=== PATIENT | male | born 1995 | race African-American/Black ===

== ENCOUNTER 2018-03-21 13:16 | Emergency (ER) | payer SELFPAY ==
[2018-03-21] MEDS ORDERED: NALOXONE HCL INJ 2 MG/2 ML DISP.SYRIN IM ONE (13:45)
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
[2018-03-21 14:20] VITALS: BP 149/96
== END 2018-03-21 14:20 ==
LOC: ER 13:16
DX: T40.2X4A Poisoning by other opioids, undetermined, initial encounter (principal); Y92.810 Car as the place of occurrence of the external cause; F10.129 Alcohol abuse with intoxication, unspecified; J45.909 Unspecified asthma, uncomplicated; F17.210 Nicotine dependence, cigarettes, uncomplicated; Z71.6 Tobacco abuse counseling; I10 Essential (primary) hypertension; H91.90 Unspecified hearing loss, unspecified ear
CPT/HCPCS: 99406; 99284; 96372; J2310